=== PATIENT | female | born 1945 | race Caucasian/White ===

== ENCOUNTER 2017-06-15 19:24 | Emergency (ER) | payer MEDICARE, SELFPAY ==
[2017-06-15 19:46] VITALS: BP 116/75; PULSE 74; RESP 20; TEMP 36.6; O2SAT 91; BMI 30.1
--- NOTE | 2017-06-15 19:51 | XR_ITS ---
XR chest 2V HISTORY: ITS.REASON: COUGH AND CHEST CONGESTION ORDERING PHYSICIAN: Mariela Ignacio PATIENT AGE: 71 years COMPARISON: None available FINDINGS: The cardiomediastinal silhouette and pulmonary vascularity are within normal limits. Patchy density is present in the left mid and lower lung zone consistent with pneumonia and/or atelectatic change. Atelectasis present in the right suprahilar region. No acute bony anomalies. IMPRESSION: Atelectasis or infiltrate in the left mid and lower lung zone and atelectasis of the right suprahilar region
--- NOTE | 2017-06-15 19:58 | HMH.EDUTC ---
[facility] [place] Dis[place] Clinical Impression: Bronchitis Disposition: Home, Self-Care Condition on Discharge: Good Instructions: DI for Cough -- Adult Additional Instructions: * Monitor Temp. Tylenol and/or Ibuprofen as needed. ER if fever is no less than 101 despite alternating Tylenol and Ibuprofen * Encourage fluids, water, Gatorade, powerade, pedialyte if infant/toddler/or child * Warm salt water gargles for throat irritation *Warm fluids *Sore throat lozenges *Sleep elevated *humidifier or vaporizer Lots of rest Increase fluids, water, Gatorade, powerade Follow up IMMEDIATELY for new or worsening of symptoms OR no noticeable improvement over the next 48-72 hours. 911 immediately for any life threatening symptoms such as chest pain or difficulty breathing Prescriptions: Azithromycin [Z-Marcelino 250mg Tab] 250 mg PO UD DOSE PK #6 tab Dextromethorphan Polistirex [Delsym] 10 ml PO Q12H PRN #350 heidy.er.12h PRN Reason: Cough Referrals: Lisseth Ruiz PA [Primary Care Provider] - Time of Disposition: 20:44 Medical Decision Making - Medical Records Medical records reviewed: Yes: I reviewed the patient's medical records. - Carlos Eduardo Inquiry Pt receiving controlled substance: No Carlos Eduardo was queried for this patient: No Vital Signs: 06/15/17 19:46 06/15/17 20:36 Temperature 97.9 F 97.9 F Temperature Source Temporal Artery Scan Pulse Rate 76 Pulse Rate [Right] 74 Respiratory Rate 20 20 Blood Pressure 118/77 Blood Pressure [Right Arm] 116/75 Blood Pressure Mean [Right Arm] 88 Blood Pressure Source [Right Arm] Automatic Cuff Blood Pressure Position [Right Arm] Sitting 02 Sat by Pulse Oximetry 91 L Oxygen Delivery Method Room Air Orders (Tests/Meds): ED MEDICATIONS Discontinued Medications Generic Name Dose Route Start Last Admin Trade Name Freq PRN Reason Stop Dose Admin Albuterol/Ipratropium 3 ml 06/15/17 20:15 06/15/17 20:23 Duoneb 3ml Neb IH 06/15/17 20:16 3 ml ONCE ONE Administration ORDERS Category Date Time Status CXR 2 view (NOT portable) [XR chest 2V] Stat Exams 06/15/17 19:51 Taken - Radiology Data #1 Image(s): Chest Image Reviewed: Yes I reviewed the patient's radiology image w/the ED provider Preliminary Findings: No Infiltrates Seen [facility] [place] HPI - General Stated complaint: SOB, Chest Cold, Coughing Time Seen by Provider: 06/15/17 20:00 Mode of Arrival: Ambulatory Source of Information: Patient Limitations: No Limitations Description of Symptoms (Recalled from Triage Doc. by RN): COUGH BEGAN YESTERDAY HEENT Symptoms (Recalled from RN notes): No Resp Symptoms (Recalled from RN notes): Yes Skin Symptoms (Recalled from RN notes): No MS Symptoms (Recalled from RN notes): No Functional Status (Recalled from RN notes): N - History of Present Illness Provider Complaint: Patient state that her son has had a bad cough for several days State that yesterday she began having a bad cough State that she has had a nagging cough that has continued since yesterday State that she has a little pressure in sinuses State that she is not coughing anything up Also state that she has her throat irritated from coughing so much - Related Data Home Medications Medication Instructions Recorded Confirmed Empagliflozin [Jardiance] 10 mg PO DAILY 06/15/17 06/15/17 Gabapentin [Gabapentin 800mg Tab] 800 mg PO DAILY 06/15/17 06/15/17 Levothyroxine Sodium 175 mcg PO DAILY 06/15/17 06/15/17 [Levothyroxine 175mcg (0.175mg) Tab] Memantine HCl [Namenda Xr] 28 mg PO DAILY 06/15/17 06/15/17 Metoprolol Tartrate [Lopressor 25 mg PO BID 06/15/17 06/15/17 25mg tablet] Pravastatin Sodium [Pravachol 20mg 20 mg PO DAILY 06/15/17 06/15/17 Tablet] Previous Rx's Medication Instructions Recorded Azithromycin [Z-Marcelino 250mg Tab] 250 mg PO UD DOSE PK #6 tab 06/15/17 Dextromethorphan Polistirex 10 ml PO Q12H PRN #350 heidy.er.12h 06/15/17 [Delsym] Allergies A
--- NOTE | 2017-06-15 20:03 | ED_ITS ---
[facility] – [place] Disposition Clinical Impression: Bronchitis Disposition: Home, Self-Care Condition on Discharge: Good Instructions: DI for Cough -- Adult Additional Instructions: * Monitor Temp. Tylenol and/or Ibuprofen as needed. ER if fever is no less than 101 despite alternating Tylenol and Ibuprofen * Encourage fluids, water, Gatorade, powerade, pedialyte if infant/toddler/or child * Warm salt water gargles for throat irritation *Warm fluids *Sore throat lozenges *Sleep elevated *humidifier or vaporizer Lots of rest Increase fluids, water, Gatorade, powerade Follow up IMMEDIATELY for new or worsening of symptoms OR no noticeable improvement over the next 48-72 hours. 911 immediately for any life threatening symptoms such as chest pain or difficulty breathing Prescriptions: Azithromycin [Z-Marcelino 250mg Tab] 250 mg PO UD DOSE PK #6 tab Dextromethorphan Polistirex [Delsym] 10 ml PO Q12H PRN #350 heidy.er.12h PRN Reason: Cough Referrals: Lisseth Ruiz PA [Primary Care Provider] - Time of Disposition: 20:44 Medical Decision Making - Medical Records Medical records reviewed: Yes: I reviewed the patient's medical records. - Carlos Eduardo Inquiry Pt receiving controlled substance: No Carlos Eduardo was queried for this patient: No Vital Signs: 06/15/17 19:46 06/15/17 20:36 Temperature 97.9 F 97.9 F Temperature Source Temporal Artery Scan Pulse Rate 76 Pulse Rate [Right] 74 Respiratory Rate 20 20 Blood Pressure 118/77 Blood Pressure [Right Arm] 116/75 Blood Pressure Mean [Right Arm] 88 Blood Pressure Source [Right Arm] Automatic Cuff Blood Pressure Position [Right Arm] Sitting 02 Sat by Pulse Oximetry 91 L Oxygen Delivery Method Room Air Orders (Tests/Meds): ED MEDICATIONS Discontinued Medications Generic Name Dose Route Start Last Admin Trade Name Freq PRN Reason Stop Dose Admin Albuterol/Ipratropium 3 ml 06/15/17 20:15 06/15/17 20:23 Duoneb 3ml Neb IH 06/15/17 20:16 3 ml ONCE ONE Administration ORDERS Category Date Time Status CXR 2 view (NOT portable) [XR chest 2V] Stat Exams 06/15/17 19:51 Taken - Radiology Data #1 Image(s): Chest Image Reviewed: Yes I reviewed the patient's radiology image w/the ED provider Preliminary Findings: No Infiltrates Seen [facility] [place] HPI - General Stated complaint: SOB, Chest Cold, Coughing Time Seen by Provider: 06/15/17 20:00 Mode of Arrival: Ambulatory Source of Information: Patient Limitations: No Limitations Description of Symptoms (Recalled from Triage Doc. by RN): COUGH BEGAN YESTERDAY HEENT Symptoms (Recalled from RN notes): No Resp Symptoms (Recalled from RN notes): Yes Skin Symptoms (Recalled from RN notes): No MS Symptoms (Recalled from RN notes): No Functional Status (Recalled from RN notes): N - History of Present Illness Provider Complaint: Patient state that her son has had a bad cough for several days State that yesterday she began having a bad cough State that she has had a nagging cough that has continued since yesterday State that she has a little pressure in sinuses State that she is not coughing anything up Also state that she has her throat irritated from coughing so much - Related Data Home Medications Medication Instructions Recorded Confirmed Empagliflozin [Cesia
[2017-06-15 20:36] VITALS: BP 118/77; PULSE 76; RESP 20; TEMP 36.6
== END 2017-06-15 20:48 | disposition home or self-care (01) ==
PROVIDERS: Emergency Provider Nurse Practitioner; Family Provider Emergency Medicine; PCP Physician Assistant
DX: J20.9 Acute bronchitis, unspecified (principal); F17.210 Nicotine dependence, cigarettes, uncomplicated
CPT/HCPCS: G0463; 71046; 99201

== ENCOUNTER 2020-08-06 16:55 | Emergency (ER) | payer MEDICARE, SELFPAY ==
[2020-08-06 16:58] VITALS: BP 117/60; PULSE 58; RESP 16; TEMP 36.6; O2SAT 97; BMI 25.5
--- NOTE | 2020-08-06 17:16 | HMH.EDUTC ---
[facility] – [place] Disposition Clinical Impression: Encounter for laboratory testing for COVID-19 virus Disposition: Home, Self-Care Condition on Discharge: Good Instructions: DI for COVID-19 (Suspected or Confirmed ), Coronavirus Disease 2019, Preventing the Spread of Coronavirus Discharge Instructions Additional Instructions: *Monitor Temp, Over the counter Motrin or Tylenol as directed/as needed Tylenol every 4 hours and Motrin every 6 hours (as long as your family doctor has told you that you can take it) for fever or pain. and straight to ER if unable to lower temp less than 101.0 after medication given Follow up IMMEDIATELY for new or worsening symptoms or no Noticeable improvement over the next 48-72 hours. 911 for difficulty breathing or swallowing You were tested for today for COVID19 your test result should be back in the next 24-48 hours, you may call to the [facility] to see if your test results are back in the next 48 hours [phone] [facility] hours are 9am-9pm You was given a handout with instructions for Self Quarantine and Self isolation for while you wait on test results and what to do if they are positive If you are positive the Health Dept will be contacting you also Referrals: Rosangela Flowers MD [Primary Care Provider] - As needed Time of Disposition: 17:18 Medical Decision Making - Carlos Eduardo Inquiry Pt receiving controlled substance: No Carlos Eduardo was queried for this patient: No Vital Signs: 08/06/20 16:58 Temperature 97.8 F Temperature Source Tympanic Pulse Rate [Left] 58 L Respiratory Rate 16 Blood Pressure [Right Arm] 117/60 Blood Pressure Mean [Right Arm] 79 Blood Pressure Source [Right Arm] Automatic Cuff Blood Pressure Position [Right Arm] Sitting 02 Sat by Pulse Oximetry 97 Oxygen Delivery Method Room Air Orders (Tests/Meds): ORDERS Category Date Time Status Covid-19 Nasal PCR ([facility]) Routine Lab 08/06/20 16:57 Ordered [facility] [place] HPI - General Stated complaint: covid test Time Seen by Provider: 08/06/20 17:16 Mode of Arrival: Ambulatory Source of Information: Patient, Relative Limitations: No Limitations Description of Symptoms (Recalled from Triage Doc. by RN): pt has had an ongoing cough. she has had two rounds of antibiotics. her cough has gotten some better. her pcp wanted her to come in and get a covid test. HEENT Symptoms (Recalled from RN notes): No Resp Symptoms (Recalled from RN notes): Yes (cough) Skin Symptoms (Recalled from RN notes): No MS Symptoms (Recalled from RN notes): No Functional Status (Recalled from RN notes): na - History of Present Illness Provider Complaint: Daughter states that patient has had a nagging on going cough, States that she has been treated with two rounds of antibiotics and was seen in the ED a couple days ago and her chest xray was clear States that her PCP wanted to have her tested for COVID to rule it out so she brought mother in to get her tested - Related Data Home Medications Medication Instructions Recorded Confirmed Empagliflozin [Jardiance] 10 mg PO DAILY 06/15/17 06/15/17 Gabapentin [Gabapentin 800mg Tab] 800 mg PO DAILY 06/15/17 06/15/17 Levothyroxine Sodium 175 mcg PO DAILY 06/15/17 06/15/17 [Levothyroxine 175mcg (0.175mg) Tab] Memantine HCl [Namenda Xr] 28 mg PO DAILY 06/15/17 06/15/17 Metoprolol Tartrate [Lopressor 25 mg PO BID 06/15/17 06/15/17 25mg tablet] Pravastatin Sodium [Pravachol 20mg 20 mg PO DAILY 06/15/17 06/15/17 Tablet] Previous Rx's Medication Instructions Recorded Azithromycin [Z-Marcelino 250mg Tab*] 250 mg PO UD DOSE PK #6 tab 06/15/17 Dextromethorphan Polistirex 10 ml PO Q12H PRN #350 heidy.er.12h 06/15/17 [Delsym] Allergies Allergy/AdvReac Type Severity Reaction Status Date / Time No Known Allergies Allergy Verified 08/06/20 16:57 - Worker's Comp Is this a Worker's Comp case?: No [facility] History - Hepatitis A Screen Drug use history?: No High risk sexual behaviors?: No History of sexually tra
[2020-08-06 17:27] VITALS: BP 117/60; PULSE 58; RESP 16; TEMP 36.6
== END 2020-08-06 17:27 | disposition home or self-care (01) ==
PROVIDERS: Emergency Provider Nurse Practitioner; PCP Family Medicine
DX: Z20.822 Contact with and (suspected) exposure to COVID-19 (principal); R05 Cough; I10 Essential (primary) hypertension; Z79.899 Other long term (current) drug therapy
CPT/HCPCS: G0463; 99202; U0003

== ENCOUNTER 2021-08-25 13:00 | Outpatient (RCR) | payer MEDICARE, SELFPAY | END 2021-09-23 16:30 | disposition home or self-care (01) | LOC: PT.CARL 13:00 | PROVIDERS: Visit Provider Physician Assistant | DX: R26.89 Other abnormalities of gait and mobility (principal); G30.1 Alzheimer's disease with late onset; F02.80 Dementia in other diseases classified elsewhere, unspecified severity, without behavioral disturbance, psychotic disturbance, mood disturbance, and anxiety | CPT/HCPCS: 97110; 97112; 97163; 97530 ==